=== PATIENT | male | born 1960 | race African-American/Black ===

== ENCOUNTER 2016-08-18 00:40 | Emergency (ER) | payer MEDICAID ==
[~2016-08-18] VITALS: Ht 162.6 cm; Wt 76.0 kg
[~2016-08-18 00:40] MED LIST: FLUO40CA49 PO; LEVO300T2 PO; PHEN100C4 PO; QUET200T PO; RISP4 PO
[2016-08-18 00:55] VITALS: BP 108/77
== END 2016-08-18 01:30 | disposition left against medical advice (07) ==
LOC: ER 00:40
DX: Z53.21 Procedure and treatment not carried out due to patient leaving prior to being seen by health care provider (principal)

== ENCOUNTER 2016-08-18 10:21 | Emergency (ER) | payer MEDICAID ==
[~2016-08-18] VITALS: Ht 162.6 cm; Wt 71.0 kg
[2016-08-18] MEDS ORDERED: KETOROLAC 60MG/2ML VIAL IM ONE (14:45)
[2016-08-18 15:51] VITALS: BP 18/86
== END 2016-08-18 16:22 | disposition home or self-care (01) ==
LOC: ER 14:05
DX: M79.1 Myalgia (principal); M19.90 Unspecified osteoarthritis, unspecified site; K21.9 Gastro-esophageal reflux disease without esophagitis; F31.9 Bipolar disorder, unspecified; E11.9 Type 2 diabetes mellitus without complications; F20.9 Schizophrenia, unspecified; G40.909 Epilepsy, unspecified, not intractable, without status epilepticus; Z91.013 Allergy to seafood
CPT/HCPCS: 96372; 99283; J1885; Z7610

== ENCOUNTER 2016-09-23 13:16 | Emergency (ER) | payer MEDICAID ==
[~2016-09-23] VITALS: Ht 172.7 cm; Wt 75.0 kg
[2016-09-23] MEDS ORDERED: ONDANSETRON 4MG ODT PO ONE (18:30)
[2016-09-23] MEDS ORDERED: KETOROLAC 60MG/2ML VIAL IM ONE (18:45)
[2016-09-23 19:02] LABS: HEMOGLOBIN. 12.8 g/dL (14.0-18.0); MEAN CORPUSCULAR HEMOGLOBIN 31.8 pg (28.0-32.0); MEAN CORPUSCULAR HGB CONC 33.7 g/dL (31.0-37.0); MEAN CORPUSCULAR VOLUME 94.2 fL (80.0-94.0); MEAN PLATELET VOLUME 8.4 fl (7.4-10.4); PLATELET 248 x1000/uL (130-400); RED BLOOD CELL COUNT 4.04 mill/uL (4.7-6.1); RED CELL DISTRIBUTION WIDTH 14.6 % (11.6-14.6); WHITE BLOOD COUNT 4.3 x1000/uL (4.5-11.0)
[2016-09-23 19:03] LABS: DIFFERENTIAL COMMENT 1
[2016-09-23 19:14] LABS: ALANINE AMINOTRANSFERASE 29 IU/L (13-61); ALBUMIN 4.1 g/dL (3.4-5.0); ANION GAP 11; CALCIUM 8.9 mg/dL (8.5-10.1); CARBON DIOXIDE 29 mEq/L (21-32); CHLORIDE 105 mEq/L (98-107); INDEX HEMOLYSI 1 (1-3); INDEX ICTERIC 1 (1-4); INDEX LIPEMIC 1 (1-3); UREA NITROGEN BLOOD 15 mg/dL (7-21); eGFR > 60 mL/min (>60)
[2016-09-23] MEDS ORDERED: MORPHINE SULFATE 4 MG/ML CPJ (NOT FOR IM USE) IV ONE (19:30)
[2016-09-23] MEDS ORDERED: SODIUM CHLORIDE 0.9% 1,000 ML IV ONE (19:30)
[2016-09-23 20:09] LABS: ATYPICAL LYMPHOCYTES 2; PLATELET ESTIMATE NORMAL
[2016-09-23 20:10] LABS: ANISOCYTOSIS 1+
[2016-09-23 20:34] VITALS: BP 123/75
== END 2016-09-23 21:38 | disposition home or self-care (01) ==
LOC: ER 13:41
DX: R10.30 Lower abdominal pain, unspecified (principal); R11.2 Nausea with vomiting, unspecified; R07.9 Chest pain, unspecified; M19.90 Unspecified osteoarthritis, unspecified site; F31.9 Bipolar disorder, unspecified; F20.9 Schizophrenia, unspecified; E11.9 Type 2 diabetes mellitus without complications; R56.9 Unspecified convulsions; Z79.899 Other long term (current) drug therapy
CPT/HCPCS: 36415; 74176; 80053; 83690; 85025; 93005; 96372; 96374; 99285; J1885; J2270; J7030; Q0162; Z7610

== ENCOUNTER 2017-02-02 17:26 | Emergency (ER) | payer MEDICAID ==
[2017-02-28] MEDS ORDERED: PHEN100C4 PO (19:05)
[2017-02-28] MEDS ORDERED: ATOR10TA PO (19:05)
[2017-02-28] MEDS ORDERED: FLUO40CA49 PO (19:05)
[2017-02-28] MEDS ORDERED: LEVO300T2 PO (19:05)
== END 2017-02-02 18:23 | disposition left against medical advice (07) ==
LOC: ER 18:08
DX: Z53.21 Procedure and treatment not carried out due to patient leaving prior to being seen by health care provider (principal); Z91.013 Allergy to seafood

== ENCOUNTER 2017-02-27 11:38 | Inpatient (IN) | payer MEDICAID ==
[~2017-02-27] VITALS: Ht 167.6 cm; Wt 79.8 kg
[2017-02-27] MEDS ORDERED: MORPHINE SULFATE 4 MG/ML CPJ (NOT FOR IM USE) IV STA (11:57)
[2017-02-27] MEDS ORDERED: SODIUM CHLORIDE 0.9% 1,000 ML IV ONE (11:57)
[2017-02-27] MEDS ORDERED: FAMOTIDINE 20MG/2ML VIAL IV STA (11:57)
[2017-02-27] MEDS ORDERED: ONDANSETRON HCL 4MG/2ML VIAL IV STA (11:57)
[2017-02-27] MEDS ORDERED: LEVETIRACETAM 500MG PREMIX 100 ML IV ONE (12:00)
[2017-02-27 13:02] LABS: CLARITY URINE CLEAR (CLEAR); COLOR URINE YELLOW (YELLOW); GLUCOSE URINE NEGATIVE (NEGATIVE); KETONES URINE NEGATIVE (NEGATIVE); LEUKOCYTE ESTERASE URINE 1+ (NEGATIVE); NITRITE URINE NEGATIVE (NEGATIVE); OCCULT BLOOD URINE 3+ (NEGATIVE); PH URINE 5.5 (4.5-8.0); PROTEIN URINE 2+ (NEGATIVE); SPECIFIC GRAVITY URINE 1.023 (1.005-1.030); UROBILINOGEN URINE 0.2 E.U./dL (0.2-1.0)
[2017-02-27 13:42] LABS: *AMPHETAMINES SCREEN URINE NEGATIVE (NEGATIVE); *BARBITURATES SCREEN URINE NEGATIVE (NEGATIVE); *BENZODIAZEPINES SCREEN URINE NEGATIVE (NEGATIVE); *COCAINE SCREEN URINE NEGATIVE (NEGATIVE); CANNABINOID URINE SCREEN NEGATIVE (NEGATIVE); METHADONE URINE SCREEN NEGATIVE (NEGATIVE); OPIATES URINE SCREEN NEGATIVE (NEGATIVE); PHENCYCLIDINE URINE SCREEN NEGATIVE (NEGATIVE)
[2017-02-27] MEDS ORDERED: LEVOFLOXACIN 750MG PREMIX 150 ML IV ONE (14:00)
[2017-02-27 14:22] LABS: BASOPHILS % 0.5 % (0.0-2.0); EOSINOPHILS % 6.6 % (0.0-5.0); HEMATOCRIT. 35.7 % (42.0-52.0); LYMPHOCYTES % 37.9 % (20.0-50.0); MEAN CORPUSCULAR HEMOGLOBIN 33.1 pg (28.0-32.0); MEAN CORPUSCULAR VOLUME 98.3 fL (80.0-94.0); MEAN PLATELET VOLUME 9.8 fl (7.4-10.4); MONOCYTES % 10.3 % (2.0-8.0); NEUTROPHILS % 44.7 % (40.0-76.0); PLATELET 197 x1000/uL (130-400); RED BLOOD CELL COUNT 3.64 mill/uL (4.7-6.1)
[2017-02-27 14:35] LABS: D-DIMER < 0.19 mg/L FEU (<0.50); PROTHROMBIN TIME 10.8 sec (9.4-11.6)
[2017-02-27 14:36] LABS: CARBON DIOXIDE 27 mEq/L (21-32); CHLORIDE 107 mEq/L (98-107); ETHANOL BLOOD < 10 mg/dL; TROPONIN I < 0.02 ng/mL (0.00-0.04)
[2017-02-27 14:42] LABS: CARBAMAZEPINE < 0.5 ug/mL (4-12); PHENOBARBITAL < 2.1 ug/mL (15.0-40.0)
[2017-02-27 20:00] VITALS: BP 144/97
[2017-02-27] MEDS ORDERED: NA PHOS,M-B/NA PHOS,DI-BA ENEMA 118ML PR PRN (22:15)
[2017-02-27] MEDS ORDERED: DIPHENHYDRAMINE 50MG/ML VIAL IV PRN (22:15)
[2017-02-27] MEDS ORDERED: ONDANSETRON HCL 4MG/2ML VIAL IV PRN (22:15)
[2017-02-27] MEDS ORDERED: LORAZEPAM 2MG/ML CPJ IV PRN (22:15)
[2017-02-27] MEDS ORDERED: ACETAMINOPHEN 325MG TABLET PO PRN (22:15)
[2017-02-27] MEDS ORDERED: CLONIDINE 0.1MG TABLET PO PRN (22:15)
[2017-02-27] MEDS ORDERED: GUAIFENESIN 200MG/10ML SUGAR FREE UDC PO PRN (22:15)
[2017-02-27] MEDS ORDERED: ACETAMINOPHEN 650MG/20.3ML UDC GT PRN (22:15)
[2017-02-27] MEDS ORDERED: IPRATROPIUM/ALBUTEROL 0.5-3(2.5)MG/3ML NEB INH PRN (22:15)
[2017-02-27] MEDS ORDERED: MAGNESIUM/ALUMINUM HYDROXIDE/SIMETHICONE 30ML UDC PO PRN (22:15)
[2017-02-27] MEDS ORDERED: ACETAMINOPHEN 650MG SUPP PR PRN (22:15)
[2017-02-27] MEDS ORDERED: DOCUSATE SODIUM 100MG CAPSULE PO PRN (22:15)
[2017-02-28] VITALS: BP 148/53
[2017-02-28] MEDS: IPRATROPIUM/ALBUTEROL 0.5-3(2.5)MG/3ML NEB INH SCH ×4 (02:11→21:05)
[2017-02-28 04:00] VITALS: BP 140/80
[2017-02-28 07:05] LABS: BASOPHILS % 0.8 % (0.0-2.0); EOSINOPHILS % 7.4 % (0.0-5.0); HEMOGLOBIN. 13.2 g/dL (14.0-18.0); LYMPHOCYTES % 33.5 % (20.0-50.0); MEAN CORPUSCULAR HEMOGLOBIN 33.1 pg (28.0-32.0); MEAN CORPUSCULAR VOLUME 98.1 fL (80.0-94.0); MEAN PLATELET VOLUME 9.7 fl (7.4-10.4); MONOCYTES % 11.5 % (2.0-8.0); NEUTROPHILS % 46.8 % (40.0-76.0); PLATELET 206 x1000/uL (130-400); RED BLOOD CELL COUNT 3.98 mill/uL (4.7-6.1); RED CELL DISTRIBUTION WIDTH 13.8 % (11.6-14.6)
[2017-02-28 08:00] VITALS: BP 133/92
[2017-02-28 08:05] LABS: CHLORIDE 103 mEq/L (98-107)
[2017-02-28] MEDS: HYDROCODONE/ACETAMINOPHEN 5/325MG TABLET PO PRN ×3 (08:08→21:07)
[2017-02-28 08:24] LABS: CARBON DIOXIDE 24 mEq/L (21-32); CREATINE KINASE 3464 IU/L (39-308); CREATINE KINASE MB FRACTION 12.3 ng/mL (0.5-3.6); HDL CHOLESTEROL 50 mg/dL (40-59); LDL CHOLESTEROL 176 mg/dL (5-100); TROPONIN I < 0.02 ng/mL (0.00-0.04)
[2017-02-28] MEDS ORDERED: ENOXAPARIN 40MG/0.4ML SYR SUBCUT SCH (09:00)
[2017-02-28 12:00] VITALS: BP 119/90
[2017-02-28] MEDS: SODIUM CHLORIDE 0.9% INJ 3ML FLUSH IVF SCH ×3 (14:00→21:08)
[2017-02-28 16:00] VITALS: BP 122/85
[2017-02-28] MEDS: LEVOFLOXACIN 500MG PREMIX 100 ML IV SCH (16:38)
[2017-02-28 17:44] LABS: PHOSPHORUS 3.3 mg/dL (2.5-4.9); T4 FREE 0.15 ng/dL (0.76-1.46); TROPONIN I < 0.02 ng/mL (0.00-0.04)
[2017-02-28 17:48] LABS: CREATINE KINASE MB FRACTION 12.6 ng/mL (0.5-3.6)
[2017-02-28] MEDS: CEFTRIAXONE 1 G PREMIX 50 ML IV SCH (17:50)
[2017-02-28 17:54] LABS: CREATINE KINASE 3171 IU/L (39-308)
[2017-02-28] MEDS ORDERED: PHEN100C4 PO (19:05)
[2017-02-28] MEDS ORDERED: LEVO300T2 PO (19:05)
[2017-02-28] MEDS ORDERED: FLUO40CA49 PO (19:05)
[2017-02-28] MEDS ORDERED: ATOR10TA PO (19:05)
[2017-02-28 20:00] VITALS: BP 166/106
[2017-02-28] MEDS ORDERED: PHENYTOIN SODIUM EXTENDED 100MG CAPSULE PO SCH (21:00)
[2017-02-28] MEDS ORDERED: ATORVASTATIN CALCIUM 10MG TABLET PO SCH ×2 (21:00)
[2017-02-28] MEDS ORDERED: TAMSULOSIN HCL 0.4MG SR CAPSULE PO SCH (21:00)
[2017-03-01] VITALS: BP 119/89
[2017-03-01] MEDS: IPRATROPIUM/ALBUTEROL 0.5-3(2.5)MG/3ML NEB INH SCH ×3 (02:07→14:10)
[2017-03-01 04:00] VITALS: BP 142/89
[2017-03-01] MEDS: SODIUM CHLORIDE 0.9% INJ 3ML FLUSH IVF SCH ×2 (06:15→11:55)
[2017-03-01] MEDS ORDERED: LEVOTHYROXINE SODIUM 50MCG TABLET PO SCH (06:45)
[2017-03-01] MEDS: HYDROCODONE/ACETAMINOPHEN 5/325MG TABLET PO PRN (07:03)
[2017-03-01 08:00] VITALS: BP 110/77
[2017-03-01] MEDS ORDERED: POTASSIUM CHLORIDE 10MEQ TABLET SR PO SCH (10:15)
[2017-03-01] MEDS ORDERED: FUROSEMIDE 40MG/4ML VIAL IVP SCH (10:15)
[2017-03-01 11:59] LABS: BASOPHILS % 0.9 % (0.0-2.0); EOSINOPHILS % 6.8 % (0.0-5.0); HEMATOCRIT. 37.6 % (42.0-52.0); HEMOGLOBIN. 12.7 g/dL (14.0-18.0); LYMPHOCYTES % 28.5 % (20.0-50.0); MEAN CORPUSCULAR HEMOGLOBIN 33.2 pg (28.0-32.0); MEAN CORPUSCULAR VOLUME 97.8 fL (80.0-94.0); MEAN PLATELET VOLUME 9.4 fl (7.4-10.4); MONOCYTES % 12.8 % (2.0-8.0); PLATELET 210 x1000/uL (130-400); RED BLOOD CELL COUNT 3.84 mill/uL (4.7-6.1); RED CELL DISTRIBUTION WIDTH 13.6 % (11.6-14.6)
[2017-03-01 12:00] VITALS: BP 116/70
[2017-03-01 13:22] LABS: CARBON DIOXIDE 26 mEq/L (21-32); CHLORIDE 102 mEq/L (98-107)
[2017-03-01 13:27] LABS: TROPONIN I < 0.02 ng/mL (0.00-0.04)
[2017-03-01] MEDS: CEFTRIAXONE 1 G PREMIX 50 ML IV SCH (15:00)
[2017-03-01] MEDS: LEVOFLOXACIN 500MG PREMIX 100 ML IV SCH (15:00)
[2017-03-01 16:00] VITALS: BP 123/85
[2017-03-01 16:29] VITALS: BP 123/85
== END 2017-03-01 17:30 | disposition home or self-care (01) | DRG 133 ==
LOC: ER 12:00 → ENRESERV 18:05 → 5WST 18:05
PROVIDERS: ADMIT Family Medicine; ATTEND Family Medicine
DX: J96.00 Acute respiratory failure, unspecified whether with hypoxia or hypercapnia (principal); J18.1 Lobar pneumonia, unspecified organism; I31.3 Pericardial effusion (noninflammatory); J44.9 Chronic obstructive pulmonary disease, unspecified; J44.0 Chronic obstructive pulmonary disease with (acute) lower respiratory infection; K29.60 Other gastritis without bleeding; F20.9 Schizophrenia, unspecified; M62.82 Rhabdomyolysis; D64.9 Anemia, unspecified; E03.9 Hypothyroidism, unspecified; E78.5 Hyperlipidemia, unspecified; F17.210 Nicotine dependence, cigarettes, uncomplicated; F31.9 Bipolar disorder, unspecified; I12.9 Hypertensive chronic kidney disease with stage 1 through stage 4 chronic kidney disease, or unspecified chronic kidney disease; M19.039 Primary osteoarthritis, unspecified wrist; M88.9 Osteitis deformans of unspecified bone; N18.9 Chronic kidney disease, unspecified; N20.0 Calculus of kidney; Z91.013 Allergy to seafood; Z59.0 Homelessness; Z79.899 Other long term (current) drug therapy
CPT/HCPCS: 36415; 71010; 74176; 80053; 80061; 80156; 80165; 80184; 80185; 80305; 81001; 82550; 82553; 82962; 83605; 83690; 83735; 83880; 84100; 84439; 84443; 84481; 84484; 85025; 85379; 85610; 87040; 87086; 93005; 93306; 94640; 96374; 99285; G0482; J0696; J1650; J1940; J1953; J1956; J2270; J2405; J3490; J7030; J7050; J7620

== ENCOUNTER 2017-03-12 12:15 | Emergency (ER) | payer MEDICAID ==
[~2017-03-12] VITALS: Ht 162.6 cm; Wt 170.0 kg
[~2017-03-12 12:15] MED LIST changes: +ATOR10TA PO; -QUET200T PO; -RISP4 PO
[2017-03-12 13:04] LABS: BASOPHILS % 0.7 % (0.0-2.0); EOSINOPHILS % 8.2 % (0.0-5.0); HEMATOCRIT. 37.6 % (42.0-52.0); HEMOGLOBIN. 12.7 g/dL (14.0-18.0); MEAN CORPUSCULAR HEMOGLOBIN 33.2 pg (28.0-32.0); MEAN CORPUSCULAR VOLUME 98.8 fL (80.0-94.0); MEAN PLATELET VOLUME 9.7 fl (7.4-10.4); MONOCYTES % 14.7 % (2.0-8.0); NEUTROPHILS % 35.4 % (40.0-76.0); PLATELET 215 x1000/uL (130-400); RED BLOOD CELL COUNT 3.81 mill/uL (4.7-6.1)
[2017-03-12 13:21] LABS: CARBON DIOXIDE 30 mEq/L (21-32); CHLORIDE 105 mEq/L (98-107); TROPONIN I < 0.02 ng/mL (0.00-0.04)
[2017-03-12 15:41] VITALS: BP 132/94
== END 2017-03-12 16:15 | disposition home or self-care (01) ==
LOC: ER 13:34
DX: R07.9 Chest pain, unspecified (principal)
CPT/HCPCS: 36415; 71010; 80048; 80185; 84484; 85025; 93005; 99285; Z7610

== ENCOUNTER 2018-07-15 08:39 | Inpatient (IN) | payer MEDICAID, MEDICARE ==
[~2018-07-15] VITALS: Ht 162.6 cm; Wt 81.4 kg
[2018-07-15] MEDS ORDERED: MORPHINE SULFATE 4 MG/ML CPJ (NOT FOR IM USE) IV STA (10:22)
[2018-07-15] MEDS ORDERED: SODIUM CHLORIDE 0.9% 1,000 ML IV ONE (10:22)
[2018-07-15] MEDS ORDERED: PANTOPRAZOLE SODIUM 40 MG/VIAL IV STA (10:22)
[2018-07-15] MEDS ORDERED: ONDANSETRON HCL 4MG/2ML INJ IV STA (10:22)
[2018-07-15 10:56] LABS: BASOPHILS % 1.2 % (0.0-2.0); EOSINOPHILS % 7.2 % (0.0-5.0); HEMATOCRIT. 24.4 % (42.0-52.0); HEMOGLOBIN. 7.7 g/dL (14.0-18.0); LYMPHOCYTES % 26.9 % (20.0-50.0); MEAN CORPUSCULAR HEMOGLOBIN 26.9 pg (28.0-32.0); MEAN CORPUSCULAR VOLUME 85.7 fL (80.0-94.0); MEAN PLATELET VOLUME 7.7 fl (7.4-10.4); MONOCYTES % 13.9 % (2.0-8.0); NEUTROPHILS % 50.8 % (40.0-76.0); PLATELET 360 x1000/uL (130-400); RED BLOOD CELL COUNT 2.85 mill/uL (4.7-6.1); RED CELL DISTRIBUTION WIDTH 19.5 % (11.6-14.6)
[2018-07-15 10:58] LABS: CLARITY URINE CLEAR (CLEAR); COLOR URINE YELLOW (YELLOW); KETONES URINE NEGATIVE (NEGATIVE); LEUKOCYTE ESTERASE URINE 1+ (NEGATIVE); NITRITE URINE NEGATIVE (NEGATIVE); OCCULT BLOOD URINE TRACE (NEGATIVE); PH URINE 5.5 (4.5-8.0); PROTEIN URINE 1+ (NEGATIVE); SPECIFIC GRAVITY URINE 1.021 (1.005-1.030); UROBILINOGEN URINE 0.2 E.U./dL (0.2-1.0)
[2018-07-15 11:02] LABS: CHLORIDE 110 mEq/L (98-107)
[2018-07-15 11:05] LABS: PROTHROMBIN TIME 10.4 sec (9.1-11.1)
[2018-07-15] MEDS ORDERED: IOHEXOL-300 100 ML BOTTLE ONE (12:03)
[2018-07-15] MEDS ORDERED: CEFTRIAXONE 1 G PREMIX 50 ML IV ONE (12:15)
[2018-07-15] MEDS ORDERED: PIPERACILLIN/TAZ 3.375G PREMIX 50 ML IV NR (13:00)
[2018-07-15] MEDS: PANTOPRAZOLE SODIUM 40 MG/VIAL IV NR ×2 (13:00→14:32)
[2018-07-15 16:10] VITALS: BP 122/85
[2018-07-15 16:15] VITALS: BP 122/85
[2018-07-15] MEDS ORDERED: ALBU6.7H9 INH (16:32)
[2018-07-15] MEDS ORDERED: FERR325T6 MT (16:32)
[2018-07-15] MEDS ORDERED: [UNRECOGNIZED DRUG - CODE] PO (16:32)
[2018-07-15] MEDS ORDERED: IBUP-2030 MT (16:32)
[2018-07-15] MEDS ORDERED: OLOP5DRO14 LEFTEYE (16:32)
[2018-07-15] MEDS ORDERED: ONDANSETRON HCL 4MG/2ML INJ IV PRN (19:45)
[2018-07-15] MEDS ORDERED: HYDRALAZINE 20MG/ML VIAL IV PRN (19:45)
[2018-07-15] MEDS ORDERED: MORPHINE SULFATE 2 MG/ML CPJ (NOT FOR IM USE) IV PRN (19:45)
[2018-07-15 20:00] VITALS: BP 96/71
[2018-07-15] MEDS: DEXT 5%/0.45% NACL 1000ML 1,000 ML IV SCH (20:19)
[2018-07-15] MEDS: LEVOFLOXACIN 500MG PREMIX 100 ML IV SCH (21:48)
[2018-07-16] VITALS (13 sets, daily range): BP systolic 87–118; BP diastolic 60–75
[2018-07-16] MEDS ORDERED: PHENYTOIN SODIUM 500 MG in SODIUM CHLORIDE 0.9% 100 ML IV SCH (01:00)
[2018-07-16] MEDS ORDERED: MORPHINE SULFATE 4 MG/ML CPJ (NOT FOR IM USE) IV PRN (03:00)
[2018-07-16] MEDS: PHENYTOIN SODIUM 100MG/2ML VIAL IV SCH ×2 (06:27→14:13)
[2018-07-16 06:54] LABS: HEMATOCRIT 29.6 % (42.0-52.0); HEMOGLOBIN 9.3 g/dL (14.0-18.0); MEAN CORPUSCULAR VOLUME 85.6 fL (80.0-94.0); PLATELET 361 x1000/uL (130-400); RED BLOOD CELL COUNT 3.46 mill/uL (4.7-6.1); RED CELL DISTRIBUTION WIDTH 19.4 % (11.6-14.6)
[2018-07-16 07:14] LABS: CHLORIDE 104 mEq/L (98-107)
[2018-07-16] MEDS ORDERED: CEFTRIAXONE 1,000 MG in DEXTROSE 5% WATER 50 ML IV SCH (09:00)
[2018-07-16] MEDS: PANTOPRAZOLE SODIUM 40 MG/VIAL IV SCH (09:50)
[2018-07-16] MEDS ORDERED: SORBITOL 70% SOLN 30ML PO NR ×2 (15:15→21:30)
[2018-07-16] MEDS ORDERED: SORBITOL 70% SOLN 30ML PO SCH (17:45)
[2018-07-16] MEDS: DOCUSATE SODIUM SUGAR FREE 100MG/10ML UDC NG SCH (17:51)
[2018-07-16] MEDS: DEXT 5%/0.45% NACL 1000ML 1,000 ML IV SCH (17:52)
[2018-07-16] MEDS: TAMSULOSIN HCL 0.4MG SR CAPSULE PO SCH (20:43)
[2018-07-16] MEDS: LEVOFLOXACIN 500MG PREMIX 100 ML IV SCH (21:56)
[2018-07-16] MEDS: PHENYTOIN SODIUM EXTENDED 100MG CAPSULE PO SCH (21:57)
[2018-07-17] VITALS: BP 88/53
[2018-07-17 04:00] VITALS: BP 89/46
[2018-07-17] MEDS: PHENYTOIN SODIUM EXTENDED 100MG CAPSULE PO SCH ×3 (05:53→22:28)
[2018-07-17 06:00] VITALS: BP 98/70
[2018-07-17] MEDS ORDERED: SORBITOL 70% SOLN 30ML PO NR (06:00)
[2018-07-17 08:00] VITALS: BP 103/62
[2018-07-17] MEDS: DOCUSATE SODIUM SUGAR FREE 100MG/10ML UDC NG SCH ×2 (09:00→17:00)
[2018-07-17] MEDS: TAMSULOSIN HCL 0.4MG SR CAPSULE PO SCH (09:00)
[2018-07-17] MEDS: PANTOPRAZOLE SODIUM 40 MG/VIAL IV SCH (09:45)
[2018-07-17] MEDS ORDERED: MIDAZOLAM HCL 5 MG/5 ML VIAL IV ONE (10:16)
[2018-07-17] MEDS ORDERED: FENTANYL CITRATE/PF 50MCG/ML 2ML VIAL IV ONE (10:17)
[2018-07-17] MEDS ORDERED: SIMETHICONE 40 MG/0.6 ML 30ML ONE ×2 (10:23→15:42)
[2018-07-17] MEDS ORDERED: FENTANYL CITRATE/PF 50MCG/ML 2ML VIAL ONE (10:23)
[2018-07-17] MEDS ORDERED: MIDAZOLAM HCL 5 MG/5 ML VIAL ONE (10:23)
[2018-07-17 12:00] VITALS: BP 114/72
[2018-07-17] MEDS: DEXT 5%/0.45% NACL 1000ML 1,000 ML IV SCH (14:58)
[2018-07-17] MEDS ORDERED: BACTERIOSTATIC SODIUM CHLORIDE 0.9% 30ML VIAL IJ ONE (15:42)
[2018-07-17 15:45] LABS: HEMATOCRIT 29.8 % (42.0-52.0); HEMOGLOBIN 9.4 g/dL (14.0-18.0); MEAN CORPUSCULAR VOLUME 85.6 fL (80.0-94.0); PLATELET 318 x1000/uL (130-400); RED BLOOD CELL COUNT 3.48 mill/uL (4.7-6.1); RED CELL DISTRIBUTION WIDTH 18.8 % (11.6-14.6)
[2018-07-17 16:00] VITALS: BP 110/70
[2018-07-17] MEDS: LEVOFLOXACIN 500MG PREMIX 100 ML IV SCH (22:28)
[2018-07-18] MEDS: PHENYTOIN SODIUM EXTENDED 100MG CAPSULE PO SCH ×2 (05:23→13:48)
[2018-07-18 06:40] LABS: HEMATOCRIT 28.5 % (42.0-52.0); MEAN CORPUSCULAR HEMOGLOBIN 27.1 pg (28.0-32.0); MEAN CORPUSCULAR VOLUME 85.3 fL (80.0-94.0); PLATELET 309 x1000/uL (130-400); RED BLOOD CELL COUNT 3.34 mill/uL (4.7-6.1)
[2018-07-18 08:00] VITALS: BP 110/76
[2018-07-18] MEDS: TAMSULOSIN HCL 0.4MG SR CAPSULE PO SCH (08:27)
[2018-07-18] MEDS: PANTOPRAZOLE SODIUM 40 MG/VIAL IV SCH ×2 (08:27→13:48)
[2018-07-18] MEDS: DOCUSATE SODIUM SUGAR FREE 100MG/10ML UDC NG SCH (08:27)
[2018-07-18] MEDS: DEXT 5%/0.45% NACL 1000ML 1,000 ML IV SCH (08:28)
[2018-07-18 12:00] VITALS: BP 120/79
[2018-07-18 16:00] VITALS: BP 116/78
[2018-07-18 16:35] VITALS: BP 117/88
== END 2018-07-18 17:19 | disposition home or self-care (01) | DRG 254 ==
LOC: ER 08:39 → 7WST 12:57 → EDBEDREQ 13:07 → ENRESERV 14:34
PROVIDERS: ADMIT Internal Medicine; ATTEND Internal Medicine
PROC: 30233N1 Transfusion of Nonautologous Red Blood Cells into Peripheral Vein, Percutaneous Approach (ICD-10-PCS; 2018-07-16)
PROC: 0DJD8ZZ Inspection of Lower Intestinal Tract, Via Natural or Artificial Opening Endoscopic (ICD-10-PCS; principal; 2018-07-17)
DX: K64.8 Other hemorrhoids (principal); I50.33 Acute on chronic diastolic (congestive) heart failure; I31.3 Pericardial effusion (noninflammatory); K65.4 Sclerosing mesenteritis; D50.0 Iron deficiency anemia secondary to blood loss (chronic); K57.10 Diverticulosis of small intestine without perforation or abscess without bleeding; M89.8X8 Other specified disorders of bone, other site; N20.0 Calculus of kidney; N32.3 Diverticulum of bladder; G40.909 Epilepsy, unspecified, not intractable, without status epilepticus; I13.0 Hypertensive heart and chronic kidney disease with heart failure and stage 1 through stage 4 chronic kidney disease, or unspecified chronic kidney disease; N39.0 Urinary tract infection, site not specified; N18.9 Chronic kidney disease, unspecified; J45.909 Unspecified asthma, uncomplicated; Z59.0 Homelessness; Z87.442 Personal history of urinary calculi; Z87.11 Personal history of peptic ulcer disease; Z79.899 Other long term (current) drug therapy
CPT/HCPCS: 36415; 71045; 71250; 74177; 80048; 80185; 82270; 83605; 84153; 84484; 85027; 86850; 86900; 86920; 93005; 93306; 96365; 96375; 97162; 99285; C9113; J0696; J1165; J1956; J2250; J2270; J2405; J2543; J3010; J3490; J7030; J7050; J7060; P9016; Q9967; A4315; G0103

== ENCOUNTER 2018-09-07 15:31 | Emergency (ER) | payer MEDICAID, MEDICARE ==
[~2018-09-07] VITALS: Ht 170.2 cm; Wt 75.0 kg
[~2018-09-07 15:31] MED LIST changes: +ALBU6.7H9 INH; -ATOR10TA PO; +FERR325T6 MT; -FLUO40CA49 PO; +IBUP-2030 MT; -LEVO300T2 PO; +OLOP5DRO14 LEFTEYE; -PHEN100C4 PO; +[UNRECOGNIZED DRUG - CODE] PO
[2018-09-07 17:00] LABS: BASOPHILS % 1.3 % (0.0-2.0); EOSINOPHILS % 7.4 % (0.0-5.0); HEMOGLOBIN. 10.6 g/dL (14.0-18.0); LYMPHOCYTES % 30.2 % (20.0-50.0); MEAN CORPUSCULAR HEMOGLOBIN 28.1 pg (28.0-32.0); MONOCYTES % 11.2 % (2.0-8.0); NEUTROPHILS % 49.9 % (40.0-76.0); PLATELET 266 x1000/uL (130-400); RED BLOOD CELL COUNT 3.79 mill/uL (4.7-6.1); RED CELL DISTRIBUTION WIDTH 20.2 % (11.6-14.6)
[2018-09-07 17:02] LABS: CHLORIDE 108 mEq/L (98-107)
[2018-09-07 17:04] LABS: PARTIAL THROMBOPLASTIN TIME 28.5 sec (23.4-31.0); PROTHROMBIN TIME 10.1 sec (9.6-11.0)
[2018-09-07 17:06] LABS: ETHANOL BLOOD < 10 mg/dL
[2018-09-07 17:39] LABS: CLARITY URINE CLEAR (CLEAR); COLOR URINE YELLOW (YELLOW); KETONES URINE NEGATIVE (NEGATIVE); LEUKOCYTE ESTERASE URINE TRACE (NEGATIVE); NITRITE URINE NEGATIVE (NEGATIVE); OCCULT BLOOD URINE 1+ (NEGATIVE); PH URINE 5.5 (4.5-8.0); PROTEIN URINE 1+ (NEGATIVE); SPECIFIC GRAVITY URINE 1.023 (1.005-1.030); UROBILINOGEN URINE 0.2 E.U./dL (0.2-1.0)
[2018-09-07 17:50] LABS: *AMPHETAMINES SCREEN URINE NEGATIVE (NEGATIVE); *BARBITURATES SCREEN URINE NEGATIVE (NEGATIVE); *BENZODIAZEPINES SCREEN URINE NEGATIVE (NEGATIVE); *COCAINE SCREEN URINE NEGATIVE (NEGATIVE)
[2018-09-07 17:51] LABS: CANNABINOID URINE SCREEN NEGATIVE (NEGATIVE); METHADONE URINE SCREEN NEGATIVE (NEGATIVE); OPIATES URINE SCREEN NEGATIVE (NEGATIVE); PHENCYCLIDINE URINE SCREEN NEGATIVE (NEGATIVE)
[2018-09-07] MEDS ORDERED: CEFTRIAXONE 1 G PREMIX 50 ML IV ONE (18:30)
[2018-09-07] MEDS ORDERED: KETOROLAC 30MG/ML VIAL IV ONE (18:30)
[2018-09-07 19:34] VITALS: BP 129/93
== END 2018-09-07 19:50 | disposition home or self-care (01) ==
LOC: ER 15:31
DX: R53.1 Weakness (principal); M54.9 Dorsalgia, unspecified; D64.9 Anemia, unspecified; N39.0 Urinary tract infection, site not specified; I10 Essential (primary) hypertension; J45.909 Unspecified asthma, uncomplicated; E11.9 Type 2 diabetes mellitus without complications; Z87.11 Personal history of peptic ulcer disease; Z87.442 Personal history of urinary calculi
CPT/HCPCS: 36415; 71045; 72100; 80053; 80305; 80320; 81003; 83690; 83880; 84484; 85025; 85044; 85610; 85730; 86850; 86900; 86901; 93005; 99284; J0696; J1885; G0480

== ENCOUNTER 2018-09-10 23:00 | Emergency (ER) | payer MEDICAID, MEDICARE ==
[~2018-09-10] VITALS: Ht 167.6 cm; Wt 86.0 kg
[2018-09-11 01:33] VITALS: BP 128/90
== END 2018-09-11 06:37 | disposition left against medical advice (07) ==
LOC: ER 23:00
DX: K62.5 Hemorrhage of anus and rectum (principal); Z53.21 Procedure and treatment not carried out due to patient leaving prior to being seen by health care provider

== ENCOUNTER 2021-03-19 07:57 | Emergency (ER) | payer MEDICAID ==
[~2021-03-19] VITALS: Ht 167.6 cm; Wt 64.0 kg
[~2021-03-19 07:57] MED LIST changes: +DEX2 MT; +DOCU250C14 MT; -IBUP-2030 MT; +KEPP500 PO; +METF500T PO; -[UNRECOGNIZED DRUG - CODE] PO
[2021-03-19] MEDS ORDERED: SODIUM CHLORIDE 0.9% 1,000 ML IV ONE (09:15)
[2021-03-19 09:39] LABS: BASOPHILS % 3.2 % (0.0-2.0); HEMATOCRIT. 38.4 % (42.0-52.0); HEMOGLOBIN. 12.7 g/dL (14.0-18.0); LYMPHOCYTES % 37.7 % (20.0-50.0); MEAN CORPUSCULAR HEMOGLOBIN 32.8 pg (28.0-32.0); MEAN CORPUSCULAR VOLUME 99.2 fL (80.0-94.0); MEAN PLATELET VOLUME 8.3 fl (7.4-10.4); MONOCYTES % 14.2 % (2.0-8.0); NEUTROPHILS % 38.9 % (40.0-76.0); PLATELET 270 x1000/uL (130-400); RED BLOOD CELL COUNT 3.87 mill/uL (4.7-6.1); RED CELL DISTRIBUTION WIDTH 13.7 % (11.6-14.6)
[2021-03-19 09:44] LABS: CLARITY URINE TURBID (CLEAR); COLOR URINE RED (YELLOW); KETONES URINE 2+ (NEGATIVE); LEUKOCYTE ESTERASE URINE 3+ (NEGATIVE); NITRITE URINE POSITIVE (NEGATIVE); OCCULT BLOOD URINE 3+ (NEGATIVE); PH URINE 5.5 (4.5-8.0); PROTEIN URINE 3+ (NEGATIVE); SPECIFIC GRAVITY URINE 1.021 (1.005-1.030)
[2021-03-19 09:47] LABS: CHLORIDE 110 mEq/L (98-107)
[2021-03-19] MEDS ORDERED: CEFTRIAXONE 1 G PREMIX 50 ML IV SCH (10:00)
[2021-03-19 11:10] LABS: PROTHROMBIN TIME 10.3 sec (9.6-11.0)
[2021-03-19] MEDS ORDERED: CEPH250C2 MT (12:04)
[2021-03-19] MEDS ORDERED: IOHEXOL-300 100 ML BOTTLE ONE (12:19)
[2021-03-19 13:53] VITALS: BP 141/75
== END 2021-03-19 14:02 | disposition home or self-care (01) ==
LOC: ER 07:57
DX: N30.00 Acute cystitis without hematuria (principal); N32.3 Diverticulum of bladder; R31.9 Hematuria, unspecified; N28.9 Disorder of kidney and ureter, unspecified; F20.9 Schizophrenia, unspecified; R56.9 Unspecified convulsions; J45.909 Unspecified asthma, uncomplicated; E11.9 Type 2 diabetes mellitus without complications; I10 Essential (primary) hypertension; I25.2 Old myocardial infarction; F32.9 Major depressive disorder, single episode, unspecified; F41.9 Anxiety disorder, unspecified
CPT/HCPCS: 36415; 74177; 80053; 81003; 85025; 85610; 86850; 86900; 86901; 87086; 93005; 96361; 96365; 99285; J0696; J7030; Q9967

== ENCOUNTER 2021-08-03 14:49 | Emergency (ER) | payer MEDICAID ==
[~2021-08-03] VITALS: Ht 170.2 cm; Wt 69.0 kg
[~2021-08-03 14:49] MED LIST changes: +CEPH250C2 MT
[2021-08-03] MEDS ORDERED: KETOROLAC 30MG/ML VIAL IV STA (15:58)
[2021-08-03] MEDS ORDERED: SODIUM CHLORIDE 0.9% 1,000 ML IV ONE (16:00)
[2021-08-03 17:43] LABS: BASOPHILS % 1.1 % (0.0-2.0); EOSINOPHILS % 6.1 % (0.0-5.0); HEMATOCRIT. 39.4 % (42.0-52.0); HEMOGLOBIN. 13.3 g/dL (14.0-18.0); LYMPHOCYTES % 28.1 % (20.0-50.0); MEAN CORPUSCULAR HEMOGLOBIN 32.1 pg (28.0-32.0); MEAN PLATELET VOLUME 8.8 fl (7.4-10.4); MONOCYTES % 13.3 % (2.0-8.0); NEUTROPHILS % 51.4 % (40.0-76.0); PLATELET 259 x1000/uL (130-400); RED BLOOD CELL COUNT 4.14 mill/uL (4.7-6.1); RED CELL DISTRIBUTION WIDTH 14.5 % (11.6-14.6)
[2021-08-03 17:44] LABS: CHLORIDE 111 mEq/L (98-107)
[2021-08-03] MEDS ORDERED: IBUP-2028 MT (19:34)
[2021-08-03 19:54] VITALS: BP 136/84
== END 2021-08-03 20:09 | disposition home or self-care (01) ==
LOC: ER 15:03
DX: S09.8XXA Other specified injuries of head, initial encounter (principal); M79.661 Pain in right lower leg; M79.662 Pain in left lower leg; W01.0XXA Fall on same level from slipping, tripping and stumbling without subsequent striking against object, initial encounter; Y93.89 Activity, other specified; Y92.89 Other specified places as the place of occurrence of the external cause; Y99.8 Other external cause status; F41.9 Anxiety disorder, unspecified; J45.909 Unspecified asthma, uncomplicated; F32.9 Major depressive disorder, single episode, unspecified; E11.9 Type 2 diabetes mellitus without complications; I10 Essential (primary) hypertension; F20.9 Schizophrenia, unspecified; I25.2 Old myocardial infarction; F12.10 Cannabis abuse, uncomplicated; Z79.899 Other long term (current) drug therapy
CPT/HCPCS: 36415; 70450; 71045; 73522; 80053; 83880; 84484; 85025; 93005; 93970; 96361; 96374; 99285; J1885; J7030; Z7610

== ENCOUNTER 2021-10-02 10:33 | Emergency (ER) | payer MEDICAID ==
[~2021-10-02] VITALS: Ht 175.3 cm; Wt 72.0 kg
[~2021-10-02 10:33] MED LIST changes: +IBUP-2028 MT
[2021-10-02] MEDS ORDERED: ONDANSETRON HCL 4MG/2ML INJ IV STA (10:56)
[2021-10-02] MEDS ORDERED: MAGNESIUM/ALUMINUM HYDROXIDE/SIMETHICONE 30ML UDC PO STA (10:56)
[2021-10-02 11:14] LABS: CHLORIDE 105 mEq/L (98-107)
[2021-10-02 11:19] LABS: BASOPHILS % 1.4 % (0.0-2.0); EOSINOPHILS % 9.7 % (0.0-5.0); HEMATOCRIT. 42.2 % (42.0-52.0); HEMOGLOBIN. 13.8 g/dL (14.0-18.0); LYMPHOCYTES % 32.8 % (20.0-50.0); MEAN CORPUSCULAR VOLUME 94.9 fL (80.0-94.0); MONOCYTES % 13.8 % (2.0-8.0); NEUTROPHILS % 42.3 % (40.0-76.0); PLATELET 233 x1000/uL (130-400); RED BLOOD CELL COUNT 4.44 mill/uL (4.7-6.1); RED CELL DISTRIBUTION WIDTH 14.6 % (11.6-14.6)
[2021-10-02] MEDS ORDERED: SODIUM CHLORIDE 0.9% 1,000 ML IV ONE (12:30)
[2021-10-02 12:59] VITALS: BP 137/88
[2021-10-02] MEDS ORDERED: MORPHINE SULFATE 2 MG/ML CPJ (NOT FOR IM USE) IV NR (13:00)
[2021-10-02 13:15] LABS: CLARITY URINE CLOUDY (CLEAR); COLOR URINE YELLOW (YELLOW); KETONES URINE NEGATIVE (NEGATIVE); LEUKOCYTE ESTERASE URINE 1+ (NEGATIVE); NITRITE URINE NEGATIVE (NEGATIVE); OCCULT BLOOD URINE 3+ (NEGATIVE); PH URINE 6.5 (4.5-8.0); PROTEIN URINE TRACE (NEGATIVE); SPECIFIC GRAVITY URINE 1.019 (1.005-1.030)
[2021-10-02 13:36] LABS: *AMPHETAMINES SCREEN URINE NEGATIVE (NEGATIVE); *BARBITURATES SCREEN URINE NEGATIVE (NEGATIVE); *BENZODIAZEPINES SCREEN URINE NEGATIVE (NEGATIVE); *COCAINE SCREEN URINE NEGATIVE (NEGATIVE); CANNABINOID URINE SCREEN NEGATIVE (NEGATIVE); METHADONE URINE SCREEN NEGATIVE (NEGATIVE); OPIATES URINE SCREEN NEGATIVE (NEGATIVE); PHENCYCLIDINE URINE SCREEN NEGATIVE (NEGATIVE)
[2021-10-02] MEDS ORDERED: CEPH250C2 MT ×2 (14:05→14:10)
[2021-10-02] MEDS ORDERED: CEFTRIAXONE 1 G PREMIX 50 ML IV NR (14:30)
== END 2021-10-02 14:57 | disposition home or self-care (01) ==
LOC: ER 10:33
DX: N39.0 Urinary tract infection, site not specified (principal); F41.9 Anxiety disorder, unspecified; F32.9 Major depressive disorder, single episode, unspecified; E11.9 Type 2 diabetes mellitus without complications; I10 Essential (primary) hypertension; I25.2 Old myocardial infarction; F20.9 Schizophrenia, unspecified; R56.9 Unspecified convulsions; J45.909 Unspecified asthma, uncomplicated; Z87.11 Personal history of peptic ulcer disease
CPT/HCPCS: 36415; 80053; 80305; 81003; 83690; 85025; 87077; 87086; 87186; 96361; 96365; 96375; 99284; J0696; J2270; J2405